=== PATIENT | female | born 1955 | race American Indian/Alaskan Native ===

== ENCOUNTER 2018-10-27 10:11 | Outpatient (CLI) | payer BC ==
[2018-10-27 11:01] LABS: Blood Urea Nitrogen 13 mg/dL (7-17)
--- NOTE | 2018-10-27 13:43 | Cat Scan Report ---
CT ANGIOGRAM ABDOMEN AND PELVIS History: Left kidney pseudoaneurysm. Technique: Helical CT in 1.25 mm intervals was performed following IV contrast. Sagittal and coronal reformatted images. Rotational MIP images. Findings: No comparison at this facility. 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 There is a rather large intermediate density subcapsular collection lateral to left kidney measuring up to 8.2 x 6.5 cm in axial plane and 12.2 cm in craniocaudal plane. This has the appearance of a subacute subcapsular hematoma. No arterial spurt to suggest active bleeding is detected. The left renal parenchyma that is displaced medially. No residual filling of the pseudoaneurysm is detected. The aorta, celiac axis, SMA, GENESIS, bilateral single renal arteries and bilateral iliac systems are widely patent with less than 20% stenosis. No evidence for dissection or aneurysm. The liver, biliary system, pancreas, spleen, right kidney, adrenal glands and bowel loops are unremarkable. Normal appendix. The bladder is partially empty but unremarkable. 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 A rather large subacute subcapsular hematoma identified in the left kidney as outlined above. No evidence for active bleeding or residual aneurysm.
== END 2018-10-27 10:12 | disposition home or self-care (01) ==
LOC: CT 10:11
PROVIDERS: ATTEND Radiology Diagnostic Radiology
DX: S37.012A Minor contusion of left kidney, initial encounter (principal); E03.9 Hypothyroidism, unspecified; X58.XXXA Exposure to other specified factors, initial encounter; Y93.89 Activity, other specified; Y92.89 Other specified places as the place of occurrence of the external cause; Y99.8 Other external cause status
CPT/HCPCS: 36415; 74174; 82565; 84520; Q9967